=== PATIENT | male | born 1995 | race Caucasian/White ===

== ENCOUNTER 2017-03-13 07:14 | Emergency (ER) | payer BC ==
[2017-03-13 07:29] VITALS: BP 122/79
[2017-03-13] MEDS ORDERED: predniSONE TAB* 20 MG PO ONE (07:45)
[2017-03-13] MEDS ORDERED: Albuterol/Ipratropium NEB.SOL* Albuterol 2.5 MG/Ipratropium 0.5 MG 3 ML INH ONE (07:46)
--- NOTE | 2017-03-13 07:54 | ED ---
Asthma - HPI Summary HPI Summary: 22 yr old with runny nose, cough, and chest congestion. Onset 3 days ago, and getting worse. he is getting awakened at night with coughing and sob. He states that he had a history of asthma. He denies chest pain, fever. Symptoms are moderate in intensity. He is a college student at [employer] - History of Current Complaint Chief Complaint: UCRespiratory Stated Complaint: SORE THROAT,CHEST CONGESTION Time Seen by Provider: 03/13/17 07:31 - Allergy/Home Medications Allergies/Adverse Reactions: Allergies Allergy/AdvReac Type Severity Reaction Status Date / Time No Known Allergies Allergy Verified 03/13/17 07:23 Home Medications: Home Medications Ibuprofen [Advil] 400 mg PO Q4H PRN 03/13/17 [History Confirmed 03/13/17] PMH/Surg Hx/FS Hx/Imm Hx Respiratory History: Reports: Hx Asthma - Immunization History Immunizations Up to Date: Yes Infectious Disease History: No Infectious Disease History: Denies: Traveled Outside the [place] in Last 30 Days - Family History Known Family History: Positive: Other - asthma - Social History Occupation: Student Alcohol Use: None Substance Use Type: Reports: None Smoking Status (MU): Never Smoked Tobacco Review of Systems Constitutional: Negative All Other Systems Reviewed And Are Negative: Yes Physical Exam Triage Information Reviewed: Yes Vital Signs On Initial Exam: Initial Vitals Temp Pulse Resp BP Pulse Ox 98.1 F 83 16 122/79 95 03/13/17 07:24 03/13/17 07:24 03/13/17 07:24 03/13/17 07:24 03/13/17 07:24 Vital Signs Reviewed: Yes Appearance: Positive: Well-Appearing, No Pain Distress Eyes: Positive: EOMI, JOSE JUAN ENT: Positive: Normal ENT inspection, Hearing grossly normal Neck: Positive: Nontender Respiratory/Lung Sounds: Positive: Decreased Breath Sounds, Wheezes - bilateral. Negative: Stridor Musculoskeletal: Positive: Strength/ROM Intact Neurological: Positive: Sensory/Motor Intact, Alert, Oriented to Person Place, Time, CN Intact II-III Diagnostics - Vital Signs Vital Signs Temp Pulse Resp BP Pulse Ox 03/13/17 07:24 98.1 F 83 16 122/79 95 - Laboratory Lab Statement: Any lab studies that have been ordered have been reviewed, and results considered in the medical decision making process. Asthma Course/Dx - Course Course Of Treatment: 22 yr old with URI symptoms and cough and wheezing. Will DC home on zithromax, prednisone and albuterol mdi - Diagnoses Provider Diagnoses: Asthmatic bronchitis, Sinusitis Discharge - Discharge Plan Condition: Good Disposition: HOME Prescriptions: Albuterol HFA INHALER* [Ventolin HFA Inhaler*] 1 - 2 puff INH Q6H PRN #1 mdi PRN Reason: Cough Azithromycin TAB* [Zithromax TAB (Z-GLYNN) 250 mg #6 tabs] 2 tab PO .TODAY, THEN 1 DAILY #1 glynn predniSONE TAB* [Deltasone TAB*] 40 mg PO DAILY #8 tab Referrals: Non Staff,Doctor [Primary Care Provider] - [facility] [facility] [Outside]
--- NOTE | 2017-03-13 08:27 | RAD ---
INDICATION: Chest congestion, productive cough. COMPARISON: No relevant prior exams available on the [facility] [place]. TECHNIQUE: Dual energy PA and routine lateral views of the chest were obtained. REPORT: Clear lungs and pleural spaces. Negative for pneumothorax. The heart, pulmonary vasculature, and mediastinal contours are unremarkable. Unremarkable osseous structures and soft tissue contours. IMPRESSION: No evidence for acute intrathoracic disease.
== END 2017-03-13 08:42 | disposition home or self-care (01) ==
LOC: UCCORT 07:14
DX: J45.909 Unspecified asthma, uncomplicated (principal); J32.9 Chronic sinusitis, unspecified
CPT/HCPCS: 71020; 99202; A9270-GY; G0463; J7512

== ENCOUNTER 2017-04-12 18:33 | Emergency (ER) | payer BC ==
[2017-04-12 19:35] VITALS: BP 135/69
--- NOTE | 2017-04-12 20:37 | UC ---
Respiratory Complaint HPI - HPI Summary HPI Summary: 22 y/o male present to the urgent care accompany by father c/o productive cough with wheezing and chest congestion. Pt reports he was here 1 months ago and Dx with bronchitis, Tx with Z-josé luis, prednisone and inhaler. Symptoms didn't completely resolved, since for the past week they have become worse. Now he is producing a green phlegm w/ mild fever at home, mild SOB and wheezing is worse. He run out of his albuterol inhaler yesterday. He denies, nasal congestion, sore throat, chest pain,N/V/D, abdominal pain. He has HX of asthma, but since age 12 no asthma exacerbations. He is up to date with all vaccines for his age - History of Current Complaint Chief Complaint: UCRespiratory Stated Complaint: COUGH/CONGESTION Time Seen by Provider: 04/12/17 20:30 Hx Obtained From: Patient, Family/Knitting Tester - father Onset/Duration: Gradual Onset, Lasting Weeks - 1 month, Still Present Timing: Intermittent Episodes Severity Initially: Moderate Severity Currently: Severe Pain Intensity: 0 Pain Scale Used: 0-10 Numeric Character: Cough: Productive, Sputum Description: - green sputum Alleviating Factors: Bronchodilator Associated Signs And Symptoms: Positive: Dyspnea, Fever - subjective at home, Wheezing Related History: Similar Episode/Dx as: - bronchitis 1 month ago - Risk Factors Pulmonary Embolism Risk Factors: Negative Cardiac Risk Factors: Negative Pseudomonas Risk Factors: Negative Tuberculosis Risk Factors: Negative - Allergies/Home Medications Allergies/Adverse Reactions: Allergies Allergy/AdvReac Type Severity Reaction Status Date / Time No Known Allergies Allergy Verified 04/12/17 19:35 PMH/Surg Hx/FS Hx/Imm Hx Previously Healthy: Yes Respiratory History: Asthma - Surgical History Surgical History: None - Family History Family History: Asthma - Social History Occupation: Student Lives: With Family Alcohol Use: None Substance Use Type: None Smoking Status (MU): Never Smoked Tobacco - Immunization History Vaccination Up to Date: Yes Review of Systems Constitutional: Fever - subjective at home Skin: Negative Eyes: Negative ENT: Negative Respiratory: Shortness Of Breath, Cough - productive, Other - wheezing Cardiovascular: Negative Gastrointestinal: Negative Genitourinary: Negative Motor: Negative Neurovascular: Negative Musculoskeletal: Negative Neurological: Negative Psychological: Negative Is Patient Immunocompromised?: No All Other Systems Reviewed And Are Negative: Yes Physical Exam Triage Information Reviewed: Yes Vital Signs: Initial Vital Signs Temp 98.7 F 04/12/17 19:32 Pulse 95 04/12/17 19:32 Resp 14 04/12/17 19:32 BP 135/69 04/12/17 19:32 Pulse Ox 99 04/12/17 19:32 - Additional Comments Vital Signs Reviewed: Yes General: well developed, well nourished male sitting in the examining table w/o any apparent distress Eyes: Positive: Conjunctiva Clear - PERRLA, EOMI, fundi grossly normal ENT: Positive: Normal ENT inspection, Hearing grossly normal, Pharynx normal, Nasal congestion - edematous and erythematous nasal mucosa, Nasal drainage - yellowish drainage, TMs normal. Negative: Tonsillar swelling, Tonsillar exudate Neck: Positive: Supple, Nontender, No Lymphadenopathy Respiratory: no orthopnea or dyspnea. Able to speak in full sentences, no retractions or accessory muscle use, no tripod position, stridor, or head bobbing. B/L lung wheezing and scattered rhonchi in the upper anterior lungs. Cardiovascular: Positive: RRR, No Murmur, Pulses Normal, Brisk Capillary Refill Abdomen Description: Positive: Nontender, No Organomegaly, Soft. Negative: CVA Tenderness (R), CVA Tenderness (L) Bowel Sounds: Positive: Present Musculoskeletal Exam: Normal Musculoskeletal: Positive: Strength Intact, ROM Intact, No Edema Neurological Exam: Normal Psychological Exam: Normal Skin Exam: Normal UC Diagnostic Evaluation - Laboratory O2 Sat by Pulse Oximetry: 99 Respiratory Course/Dx - Course Course Of Treatment: 22 y/o male present to the urgent care accompany by father c/o productive cough with wheezing and chest congestion. Pt reports he was here 1 months ago and Dx with bronchitis, Tx with Z-josé luis, prednisone and inhaler. Symptoms didn't completely resolved, since for the past week they have become worse. Now he is producing a green phlegm w/ mild fever at home, mild SOB and wheezing is worse. He run out of his albuterol inhaler yesterday. He denies, nasal congestion, sore throat, chest pain,N/V/D, abdominal pain. He has HX of asthma, but since age 12 no asthma exacerbations. He is up to date with all vaccines for his age. Hx obtained. Pt with B/L wheezing on both lungs and scattered rhonchi on upper lungs. Asthma exacerbation: due to Acute Bronchitis: Albuterol Treatment: 1 Tx given to patient w/ Prednisone 60mg PO. Patient tolerated well treatment Patient prescribed Amxicillin PO, Prednisone PO taper dose, albuterol inhaler and Neb solution as directed below. The patient was recommended to increase fluid intake. Take medications as recommended and patient advised to continue w/ albuterol treatments TID. Patient recommended to return to the clinic or go to the nearest ER if symptoms do not improve or worsen. Patient understood and agreed w/ D/C instructions. - Differential Dx/Diagnosis Differential Diagnosis/HQI/PQRI: Asthma, Bronchitis, Influenza, Laryngitis, Lower Resp Infection, Other - URI Provider Diagnoses: 1- Acute bronchitis. 2-Asthma exacerbation Discharge - Discharge Plan Condition: Stable Disposition: HOME Prescriptions: Albuterol 2.5MG/3ML (0.083%)* [Ventolin 2.5 MG/3 ML NEB.VICTORINO*] 2.5 mg INH Q6H #1 josé luis Albuterol HFA INHALER* [Ventolin HFA Inhaler*] 1 - 2 puff INH Q4H PRN #1 mdi PRN Reason: Sob/Wheezing Amoxicillin PO (*) [Amoxicillin 875 MG (*)] 875 mg PO BID #20 tab predniSONE TAB* [Deltasone TAB*] 20 mg PO DAILY #8 tab Patient Education Materials: Asthma (ED), Acute Bronchitis (ED) Forms: *School Release Referrals: Non Staff,Doctor [Primary Care Provider] - [facility] [place] [facility] [Outside] Additional Instructions: 1-Please take full course of antibiotic to avoid resistance. 2-Take Prednisone PO as directed, and continue using the albuterol inhaler. If possible do the nebulizer at night time. You can continue taking Mucinex to alleviate cougn. Increase fluid intake, eat well and rest. 3- If symptoms do not improve or worsen or your develop SOB with fever and severe wheezing please go immediately to the ER further evaluation and treatment. 4- F/u with your PCP in 2-3 days for further management on your Asthma
[2017-04-12] MEDS ORDERED: Albuterol 2.5 MG/3 ML NEB.SOL* (0.083%) INH ONE (20:56)
[2017-04-12] MEDS ORDERED: predniSONE TAB* 20 MG PO ONE (20:56)
[2017-04-12] MEDS ORDERED: Amoxicillin PO (*) 500 MG CAP PO ONE (20:59)
== END 2017-04-12 21:40 | disposition home or self-care (01) ==
LOC: UCCORT 18:33
DX: J20.9 Acute bronchitis, unspecified (principal); J45.901 Unspecified asthma with (acute) exacerbation
CPT/HCPCS: 99213; A9270-GY; G0463; J7512

== ENCOUNTER 2018-07-29 12:12 | Emergency (ER) | payer BC ==
[2018-07-29 14:14] VITALS: BP 150/83
[2018-07-29 14:52] LABS: Influenza A Molecular NEGATIVE (Negative); Influenza B Molecular NEGATIVE (Negative)
--- NOTE | 2018-07-29 15:02 | UC ---
FLU HPI - HPI Summary HPI Summary: Pt c/o sudden onset of fever chills, nasal congestion, cough, body aches and ST X 2 days. - History of Current Complaint Chief Complaint: UCGeneralIllness Stated Complaint: SINUS,FEVER,COUGH Time Seen by Provider: 07/29/18 14:33 Hx Obtained From: Patient Onset/Duration: Sudden Onset, Lasting Days, Still Present Severity Currently: Mild Severity Initially: Mild Pain Intensity: 0 Associated Signs & Symptoms: Positive: Fever, Myalgia, Cough, Sore Throat, Nasal Congestion Related Hx: Possible Flu/Infectious Exposure - Risk Factors Influenza Risk Factors: Negative - Allergy/Home Medications Allergies/Adverse Reactions: Allergies Allergy/AdvReac Type Severity Reaction Status Date / Time No Known Allergies Allergy Verified 07/29/18 14:12 Home Medications: Home Medications D-Methorphan/PE/Acetaminophen [Daytime Cold-Flu Relief Sftgl] 1 dose PO ONCE 02/06 [History Confirmed 07/29/18] PMH/Surg Hx/FS Hx/Imm Hx Previously Healthy: Yes Respiratory History: Asthma - Surgical History Surgical History: Yes Surgery Procedure, Year, and Place: T&A - Family History Known Family History: Positive: Cardiac Disease, Other - asthma Family History: Asthma - Social History Occupation: Student - [employer] Lives: Dormitory/Roommates Alcohol Use: Occasionally Substance Use Type: None Smoking Status (MU): Never Smoked Tobacco Have You Smoked in the Last Year: No - Immunization History Vaccination Up to Date: Yes Review of Systems All Other Systems Reviewed And Are Negative: Yes Constitutional: Positive: Fever, Chills, Fatigue Skin: Positive: Negative Eyes: Positive: Negative ENT: Positive: Sore Throat, Sinus Congestion Respiratory: Positive: Cough Cardiovascular: Positive: Negative Gastrointestinal: Positive: Negative Genitourinary: Positive: Negative Motor: Positive: Negative Neurovascular: Positive: Negative Musculoskeletal: Positive: Myalgia Neurological: Positive: Headache Psychological: Positive: Negative Is Patient Immunocompromised?: No Physical Exam Triage Information Reviewed: Yes Appearance: Well-Appearing Vital Signs: Initial Vital Signs Temp 98.5 F 07/29/18 14:12 Pulse 73 07/29/18 14:12 Resp 16 07/29/18 14:12 BP 150/83 07/29/18 14:12 Pulse Ox 100 07/29/18 14:12 Vital Signs Reviewed: Yes Eye Exam: Normal ENT: Positive: Hearing grossly normal, Nasal congestion Dental Exam: Normal Neck exam: Normal Respiratory Exam: Normal Cardiovascular Exam: Normal Musculoskeletal Exam: Normal Neurological Exam: Normal Psychological Exam: Normal Skin Exam: Normal Flu Course/Dx - Differential Dx/Diagnosis Differential Diagnosis/HQI/PQRI: Influenza, Upper Respiratory Infection Provider Diagnosis: Viral syndrome Discharge - Sign-Out/Discharge Documenting (check all that apply): Patient Departure All imaging exams completed and their final reports reviewed: No Studies - Discharge Plan Condition: Stable Disposition: HOME Prescriptions: Benzonatate CAP* [Tessalon 100 MG CAP*] 200 mg PO Q8H PRN #30 cap PRN Reason: Cough predniSONE TAB* [Deltasone 10 MG TAB*] 30 mg PO DAILY #12 tab Patient Education Materials: Viral Syndrome (ED) Forms: *School Release Referrals: [facility] [Outside] - If Needed No Primary Care Phys,NOPCP [Primary Care Provider] - - Billing Disposition and Condition Condition: STABLE Disposition: Home
== END 2018-07-29 15:07 | disposition home or self-care (01) ==
LOC: UCCORT 12:12
DX: B34.9 Viral infection, unspecified (principal); R09.81 Nasal congestion; R05 Cough; J02.9 Acute pharyngitis, unspecified; M79.10 Myalgia, unspecified site; J45.909 Unspecified asthma, uncomplicated
CPT/HCPCS: 99212; G0463

== ENCOUNTER 2018-08-08 11:42 | Emergency (ER) | payer BC ==
[2018-08-08 13:31] VITALS: BP 119/84
[2018-08-08 13:37] LABS: Influenza A Molecular POSITIVE (Negative)
--- NOTE | 2018-08-08 13:43 | UC ---
FLU HPI - HPI Summary HPI Summary: 23-year-old male presents with onset of fever, chills, malaise, body aches, nasal congestion, clear nasal discharge, sore throat, and dry nonproductive cough yesterday. Denies ear pain, dysphagia, wheezing, shortness of breath, chest pain, abdominal pain, nausea, vomiting, or diarrhea. - History of Current Complaint Chief Complaint: UCRespiratory Stated Complaint: FLU SX'S Time Seen by Provider: 08/08/18 13:24 Hx Obtained From: Patient Pain Intensity: 5 - Allergy/Home Medications Allergies/Adverse Reactions: Allergies Allergy/AdvReac Type Severity Reaction Status Date / Time No Known Allergies Allergy Verified 08/08/18 13:25 Home Medications: Home Medications Dm/Acetaminophen/Doxylamine [Vicks Nyquil Cold & Flu N 15-6.25-325 mg] 1 cap PO PRN 08/08/18 [History] Ibuprofen TAB* [Advil TAB*] 600 mg PO Q6H PRN 08/08/18 [History Confirmed ] PMH/Surg Hx/FS Hx/Imm Hx Previously Healthy: Yes Respiratory History: Asthma - Surgical History Surgical History: Yes Surgery Procedure, Year, and Place: T&A - Family History Known Family History: Positive: Cardiac Disease, Other - asthma Family History: Asthma - Social History Occupation: Student Lives: Dormitory/Roommates Alcohol Use: Occasionally Substance Use Type: None Smoking Status (MU): Never Smoked Tobacco Have You Smoked in the Last Year: No - Immunization History Vaccination Up to Date: Yes Review of Systems All Other Systems Reviewed And Are Negative: Yes Constitutional: Positive: Fever, Chills, Fatigue, Other - malaise Skin: Negative: Rash Eyes: Negative: Drainage, Eye Redness ENT: Positive: Sore Throat, Nasal Discharge, Sinus Congestion. Negative: Ear Ache, Sinus Pain/Tenderness Respiratory: Positive: Cough. Negative: Shortness Of Breath, Other - Wheezing Cardiovascular: Negative: Palpitations, Chest Pain Gastrointestinal: Negative: Abdominal Pain, Vomiting, Diarrhea, Nausea Genitourinary: Positive: Negative Musculoskeletal: Positive: Myalgia Neurological: Positive: Negative Is Patient Immunocompromised?: No Physical Exam - Summary Physical Exam Summary: GENERAL APPEARANCE: Well developed, well nourished, alert and cooperative, and appears to be in no acute distress. EYES: Conjunctiva clear. No drainage. Vision is grossly intact. EARS: External auditory canals and tympanic membranes clear, hearing grossly intact. NOSE: Mild-moderate nasal congestion with clear nasal discharge. THROAT: Mild pharyngeal erythema. Tonsils surgically absent. Oral cavity normal. Teeth and gingiva in good general condition. NECK: Neck supple, non-tender without lymphadenopathy. CARDIAC: Normal S1 and S2. No S3, S4 or murmurs. Rhythm is regular. There is no peripheral edema, cyanosis or pallor. Extremities are warm and well perfused. Capillary refill is less than 2 seconds. LUNGS: Clear to auscultation without rales, rhonchi, wheezing or diminished breath sounds. ABDOMEN: Positive bowel sounds. Soft, nondistended, nontender. No guarding or rebound. No masses or hepatosplenomegally. MUSKULOSKELETAL: ROM intact to all extremities. No joint erythema or tenderness. Normal muscular development. Normal gait. SKIN: Skin normal color, texture and turgor with no lesions or eruptions. Triage Information Reviewed: Yes Vital Signs: Initial Vital Signs Temp 98.5 F 08/08/18 13:27 Pulse 104 08/08/18 13:27 Resp 12 08/08/18 13:27 BP 119/84 08/08/18 13:27 Pulse Ox 98 08/08/18 13:27 Vital Signs Reviewed: Yes Diagnostics - Laboratory Diagnostic Studies Completed/Ordered: Rapid flu positive influenza A Flu Course/Dx - Course Course Of Treatment: 23-year-old male presents with onset of fever, chills, malaise, body aches, nasal congestion, clear nasal discharge, sore throat, and dry nonproductive cough yesterday. Denies ear pain, dysphagia, wheezing, shortness of breath, chest pain, abdominal pain, nausea, vomiting, or diarrhea. Afebrile. Vital signs stable. Exam reveals a young adult male in no acute distress with pogu-rh-igohmlla nasal congestion, clear nasal discharge, mild pharyngeal erythema, and a dry nonproductive cough. Rapid flu positive for influenza A. Will start the patient on Tamiflu 75 mg twice a day 5 days as well as symptomatic treatment including Tessalon Perles one Every 8 hours as needed for cough. Patient was also encouraged to use his albuterol inhaler 2 puffs every 4-6 hours should he develop any shortness of breath or wheezing. He is to return here or follow up with his primary care provider in 7 days if symptoms do not improve. Anticipatory guidance and warning symptoms reviewed with patient. Verbalizes understanding the plan of care. - Differential Dx/Diagnosis Differential Diagnosis/HQI/PQRI: Bronchitis, Influenza, Pneumonia, Upper Respiratory Infection Provider Diagnosis: Influenza A Discharge - Sign-Out/Discharge Documenting (check all that apply): Patient Departure All imaging exams completed and their final reports reviewed: No Studies - Discharge Plan Condition: Stable Disposition: HOME Prescriptions: Benzonatate CAP* [Tessalon 100 MG CAP*] 100 mg PO TID PRN #30 cap PRN Reason: Cough Oseltamivir CAP* [Tamiflu CAP*] 75 mg PO BID #10 cap Patient Education Materials: Influenza (ED) Referrals: No Primary Care Phys,NOPCP [Primary Care Provider] - Additional Instructions: Your flu test performed in the clinic today was positive for influenza A. Start Tamiflu 1 cap twice a day for 5 days. Use Tessalon Perles 1 cap every 8 hours as needed for cough. Take over the counter Sudafed according to directions as needed for congestion. Use your albuterol inhaler 2 puffs every 4-6 hours as needed for shortness of breath or wheezing. Get plenty of rest. Drink plenty of fluids to avoid dehydration especially if you are running any fever. Take over the counter acetaminophen (Tylenol) or ibuprofen (Advil, Motrin) according to directions as needed for pain or fever. Use salt water gargles several times a day if you have a sore throat. You may also use Chloraseptic spray or Cepacol lonzenges according to directions which contain a numbing medication and can provide some temporary relief from your sore throat. Return here or follow up with your primary care provider in 7 days if symptoms persist. Seek immediate medical attention in the emergency room if you have fever greater than 100.5 F despite taking acetaminophen or ibuprofen, have chest pain , difficulty breathing, are unable to swallow, or have any worsening of symptoms. - Billing Disposition and Condition Condition: STABLE Disposition: Home
== END 2018-08-08 14:02 | disposition home or self-care (01) ==
LOC: UCCORT 11:42
DX: J10.1 Influenza due to other identified influenza virus with other respiratory manifestations (principal); J45.909 Unspecified asthma, uncomplicated
CPT/HCPCS: 99212; G0463

== ENCOUNTER 2019-03-08 17:02 | Emergency (ER) | payer BC ==
[2019-03-08 17:49] VITALS: BP 123/69
--- NOTE | 2019-03-08 18:47 | UC ---
Throat Pain/Nasal Walter HPI - HPI Summary HPI Summary: 24-year-old male presents with one-day history of nasal congestion, runny nose, postnasal drip, sore throat, and dry nonproductive cough. Patient states had history of asthma as a child and does have an albuterol inhaler but has not had to use it. Denies fever, chills, ear pain, dysphagia, chest pain, shortness of breath, wheezing, abdominal pain, nausea, vomiting, or diarrhea. - History of Current Complaint Chief Complaint: UCRespiratory Stated Complaint: THROAT PAIN, COUGH Time Seen by Provider: 03/08/19 17:59 Hx Obtained From: Patient Pain Intensity: 5 - Allergies/Home Medications Allergies/Adverse Reactions: Allergies Allergy/AdvReac Type Severity Reaction Status Date / Time No Known Allergies Allergy Verified 03/08/19 17:45 PMH/Surg Hx/FS Hx/Imm Hx Respiratory History: Asthma - Surgical History Surgical History: Yes Surgery Procedure, Year, and Place: T&A - Family History Known Family History: Positive: Cardiac Disease, Other - asthma Family History: Asthma - Social History Occupation: Student Lives: Dormitory/Roommates Alcohol Use: Occasionally Substance Use Type: None Smoking Status (MU): Never Smoked Tobacco Have You Smoked in the Last Year: No - Immunization History Vaccination Up to Date: Yes Review of Systems All Other Systems Reviewed And Are Negative: Yes Constitutional: Negative: Fever, Chills Eyes: Negative: Drainage, Eye Redness ENT: Positive: Sore Throat, Nasal Discharge, Sinus Congestion. Negative: Ear Ache, Sinus Pain/Tenderness Respiratory: Positive: Cough. Negative: Shortness Of Breath Cardiovascular: Negative: Chest Pain Gastrointestinal: Negative: Abdominal Pain, Vomiting, Diarrhea, Nausea Genitourinary: Positive: Negative Musculoskeletal: Positive: Negative Neurological: Positive: Negative Is Patient Immunocompromised?: No Physical Exam - Summary Physical Exam Summary: GENERAL APPEARANCE: Well developed, well nourished, alert and cooperative, and appears to be in no acute distress. EYES: Conjunctiva clear. No drainage. EARS: External auditory canals and tympanic membranes clear, hearing grossly intact. NOSE: Mild-moderate nasal congestion with clear nasal discharge. THROAT: Pharyngeal cobblestoning. Surgically absent tonsils. Uvula midline. NECK: Neck supple, non-tender without lymphadenopathy. CARDIAC: Normal S1 and S2. No S3, S4 or murmurs. Rhythm is regular. There is no peripheral edema, cyanosis or pallor. Extremities are warm and well perfused. Capillary refill is less than 2 seconds. Peripheral pulses intact. LUNGS: Clear to auscultation without rales, rhonchi, wheezing or diminished breath sounds. Dry, non-productive cough. ABDOMEN: Positive bowel sounds. Soft, nondistended, nontender. No guarding or rebound. No masses or hepatosplenomegally. MUSKULOSKELETAL: ROM intact to all extremities. No joint erythema or tenderness. Normal muscular development. Normal gait. SKIN: Skin normal color, texture and turgor with no lesions or eruptions. Triage Information Reviewed: Yes Vital Signs: Initial Vital Signs Temp 99 F 03/08/19 17:46 Pulse 83 03/08/19 17:46 Resp 16 03/08/19 17:46 BP 123/69 03/08/19 17:46 Pulse Ox 99 03/08/19 17:46 Vital Signs Reviewed: Yes Throat Pain/Nasal Course/Dx - Course Course Of Treatment: 24-year-old male presents with one-day history of nasal congestion, runny nose, postnasal drip, sore throat, and dry nonproductive cough. Patient states had history of asthma as a child and does have an albuterol inhaler but has not had to use it. Denies fever, chills, ear pain, dysphagia, chest pain, shortness of breath, wheezing, abdominal pain, nausea, vomiting, or diarrhea. Afebrile. Vital signs stable. Patient had mild to moderate nasal congestion with clear nasal discharge, pharyngeal cobblestoning, surgically absent tonsils, no cervical lymphadenopathy, clear bilateral breath sounds, dry nonproductive cough , and otherwise unremarkable exam. Recommending symptomatic treatment for a viral upper respiratory infection including saline rinse his, fluticasone nasal spray, [id number]-[id number] decongestant, Tessalon Perles as needed for cough, continued use of his albuterol inhaler as needed, as well as [id number] analgesics. He is to return here or follow up with the [facility] in 5-7 days if symptoms are not improving. Anticipatory guidance warning symptoms were reviewed with the patient. Verbalizes understanding and agrees with plan of care. - Differential Dx/Diagnosis Differential Diagnosis/HQI/PQRI: Influenza, Sinusitis, URI Provider Diagnosis: Viral URI with cough Discharge ED - Sign-Out/Discharge Documenting (check all that apply): Patient Departure All imaging exams completed and their final reports reviewed: No Studies - Discharge Plan Condition: Stable Disposition: HOME Prescriptions: Benzonatate CAP* [Tessalon 100 MG CAP*] 100 mg PO TID PRN #21 cap PRN Reason: Cough Fluticasone NASAL SPRAY 50MCG* [Flonase NASAL SPRAY 50MCG*] 2 spray BOTH NARES DAILY #1 btl Patient Education Materials: Upper Respiratory Infection (ED) Forms: *School Release Referrals: No Primary Care Phys,NOPCP [Primary Care Provider] - Additional Instructions: Your history and exam are consistent with a viral upper respiratory infection. Viral infections do not respond to antibiotics and are limited to the treatment of symptoms. Viral infections typically run their course in 7-10 days. Drink plenty of fluids to avoid dehydration especially if you are running any fever. Use a saline rinse kit such as Neti Pot or NeilMed at least twice a day to help thin secretions and promote drainage of the sinuses. Use fluticasone (Flonase) nasal spray 2 sprays each nostril once daily. Take an khmi-xln-xhvcfrk decongestant such as Sudafed according to direction to help with congestion. Take Tessalon Perles 1 cap every 8 hours as needed for cough. Use your albuterol inhaler as directed for any shortness of breath or wheezing. Take over the counter acetaminophen (Tylenol) or ibuprofen (Advil, Motrin) according to directions as needed for pain or fever. Use salt water gargles several times a day if you have a sore throat. You may also use Chloraseptic spray or Cepacol lonzenges according to directions which contain a numbing medication and can provide some temporary relief from your sore throat. Return here or follow up in the [facility] in 5-7 days if symptoms persist. Seek immediate medical attention in the emergency room if you have fever greater than 100.5 F despite taking acetaminophen or ibuprofen, have chest pain , difficulty breathing, are unable to swallow, or have any worsening of symptoms. - Billing Disposition and Condition Condition: STABLE Disposition: Home
== END 2019-03-08 19:06 | disposition home or self-care (01) ==
LOC: UCCORT 17:02
DX: J06.9 Acute upper respiratory infection, unspecified (principal); J45.909 Unspecified asthma, uncomplicated
CPT/HCPCS: 87651; 99212; G0463